=== PATIENT | male | born 1995 | race Caucasian/White ===

== ENCOUNTER 2019-03-20 18:26 | Emergency (ER) | payer SELFPAY ==
[~2019-03-20] VITALS: Ht 180.3 cm; Wt 70.3 kg
[2019-03-20 18:30] VITALS: BP 134/82
[2019-03-20] MEDS ORDERED: DOXY100T PO (19:10)
--- NOTE | 2019-03-20 19:11 | PHYS DOC ---
Past History Past Medical History: Other Past Surgical History: No Surgical History Additional Smoking Information: VAPE Alcohol Use: Heavy Additional Alcohol Information: COUPLE A NIGHT Drug Use: None Adult General Chief Complaint Chief Complaint: SKIN PROBLEM HPI HPI 23-year-old male presents with multiple skin lesions. He describes it as a rash. He tells me that he believes is being exposed to a chemical at home that is causing the rash. He is unsure what this chemical is. He states that the chemical has followed him as a smoke to multiple locations in the past. He will be staying in a different place tonight. He was staying in a [facility]. The patient does not believe that the smoke is coming from his vaping. The patient denies being outside very much, but has sunburn on both shoulders. The rash is not pruritic. He is concerned about one his left forearm getting infected. He has had staph infection in the past. He denies fever or chills. Review of Systems Review of Systems Constitutional: Denies fever or chills [] Eyes: Denies change in visual acuity, redness, or eye pain [] HENT: Denies nasal congestion or sore throat [] Respiratory: Denies cough or shortness of breath [] Cardiovascular: No additional information not addressed in HPI [] GI: Denies abdominal pain, nausea, vomiting, bloody stools or diarrhea [] : Denies dysuria or hematuria [] Musculoskeletal: Denies back pain or joint pain [] Integument: Rash[] Neurologic: Denies headache, focal weakness or sensory changes [] Endocrine: Denies polyuria or polydipsia [] All other systems were reviewed and found to be within normal limits, except as documented in this note. Allergies Allergies Allergies Coded Allergies Type Severity Reaction Last Updated Verified No Known Drug Allergies 03/20/19 No Physical Exam Physical Exam Constitutional: Well developed, well nourished, no acute distress, non-toxic appearance. [] HENT: Normocephalic, atraumatic, bilateral external ears normal, oropharynx moist, no oral exudates, nose normal. [] Eyes: PERRLA, EOMI, conjunctiva normal, no discharge. [] Neck: Normal range of motion, no tenderness, supple, no stridor. [] Cardiovascular:Heart rate regular rhythm, no murmur [] Lungs & Thorax: Bilateral breath sounds clear to auscultation [] Abdomen: Bowel sounds normal, soft, no tenderness, no masses, no pulsatile masses. [] Skin: Multiple small erythematous areas consistent with insect bite. One on his left forearm and on his back do appear to have surrounding cellulitis.[] Back: No tenderness, no CVA tenderness. [] Extremities: No tenderness, no cyanosis, no clubbing, ROM intact, no edema. [] Neurologic: Alert and oriented X 3, normal motor function, normal sensory function, no focal deficits noted. [] Psychologic: Affect normal, judgement normal, mood normal. [] Current Patient Data Vital Signs Vital Signs Date Time Temp Pulse Resp B/P (MAP) Pulse Ox O2 Delivery O2 Flow Rate FiO2 03/20/19 18:30 98.2 108 22 96 Room Air EKG EKG [] Radiology/Procedures Radiology/Procedures [] Course & Med Decision Making Course & Med Decision Making Pertinent Labs and Imaging studies reviewed. (See chart for details) [] Dragon Disclaimer Dragon Disclaimer This electronic medical record was generated, in whole or in part, using a voice recognition dictation system. Departure Departure: Impression: Primary Impression: Insect bites Additional Impression: Cellulitis of arm, left Disposition: 01 HOME, SELF-CARE Condition: STABLE Referrals: PCP,NO (PCP) Patient Instructions: Cellulitis, [id number] Scripts Doxycycline Hyclate (DOXYCYCLINE HYCLATE) 100 Mg Tablet 1 TAB PO BID for cellulitis, #14 TAB Prov: CHARANJIT CRAFT DO 03/20/19 Problem Qualifiers Primary Impression: Insect bites Encounter type: initial encounter Site of insect bite: forearm Laterality: left Qualified Codes: S50.862A - Insect bite (nonvenomous) of left forearm, initial encounter; W57.XXXA - Bitten or stung by nonvenomous insect and other nonvenomous arthropods, initial encounter CHARANJIT CRAFT DO Mar 20, 2019 19:11
== END 2019-03-20 19:29 | disposition home or self-care (01) ==
LOC: ER 18:26
DX: S50.862A Insect bite (nonvenomous) of left forearm, initial encounter (principal); L03.114 Cellulitis of left upper limb; F10.20 Alcohol dependence, uncomplicated; Y90.9 Presence of alcohol in blood, level not specified; W57.XXXA Bitten or stung by nonvenomous insect and other nonvenomous arthropods, initial encounter; Y93.89 Activity, other specified; Y92.89 Other specified places as the place of occurrence of the external cause; Y99.8 Other external cause status
CPT/HCPCS: 87070; 99283